=== PATIENT | female | born 1960 | race African-American/Black ===

== ENCOUNTER 2022-01-27 14:58 | Inpatient (IN) | payer MEDICAID, OTHER ==
[~2022-01-27] VITALS: Ht 167.6 cm; Wt 49.8 kg
[2022-01-27 19:00] LABS: Basophils # (auto) 0 10 ^3/uL (0-0.2); Basophils % (auto) 1.4 % (0.0-2.0); Eosinophils # (auto) 0.1 10 ^3/uL (0-0.8); Eosinophils % (auto) 4.3 % (0.0-7.0); Hematocrit 37.5 % (36.0-46.0); Hemoglobin 12.3 g/dL (12.2-16.2); Lymphocytes # (auto) 0.5 10 ^3/uL (0.4-5.4); Lymphocytes % (auto) 20.4 % (10.0-50.0); Mean Corpuscular Hemoglobin 28.4 pg (28.0-32.0); Mean Corpuscular Hgb Conc. 32.9 g/dL (32.0-36.0); Mean Corpuscular Volume 86.4 fL (80.0-100.0); Monocytes # (auto) 0.2 10 ^3/uL (0-1.3); Monocytes % (auto) 9.3 % (0.0-12.0); Neutrophils # (auto) 1.6 10 ^3/uL (1.6-8.6); Neutrophils % (auto) 64.6 % (37.0-80.0); Nucleated Red Blood Cells % 0.3 %; Red Blood Cells 4.34 10^6/uL (4.0-5.20); Red Cell Distribution Width 18.4 % (11.8-14.3); White Blood Cell 2.4 10^3/uL (4.4-10.8)
[2022-01-27 19:25] LABS: Albumin 3.5 g/dL (3.4-5.0); Calcium 8.7 mg/dL (8.5-10.1); Magnesium 2.9 mg/dL (1.6-2.6); Potassium 4.2 mmol/L (3.5-5.1)
[2022-01-27 19:30] LABS: BUN/Creatinine Ratio 12.4; Bilirubin, Total 0.3 mg/dL (0.2-1.0); Total Protein 7.8 g/dL (6.4-8.2)
[2022-01-27] MEDS ORDERED: FUROSEMIDE 40 MG/4 ML VIAL IV ONE (20:15)
[2022-01-27] MEDS ORDERED: MORPHINE SULFATE INJECTION 2 MG/ML SYRG IV PRN (22:00)
[2022-01-27] MEDS ORDERED: ONDANSETRON HCL 4 MG/2 ML VIAL IV PRN (22:00)
[2022-01-27] MEDS: HEPARIN SODIUM (PORCINE) 5000 UNITS/ML 1ML VIAL SC SCH (22:00)
[2022-01-27] MEDS ORDERED: NITROGLYCERIN 0.4 MG SL TAB SL PRN (22:00)
[2022-01-27] MEDS ORDERED: DOCUSATE SOD 100 MG CAP PO PRN (22:00)
[2022-01-27 22:36] LABS: Urine Bacteria MANY /hpf (None Seen); Urine Blood Negative /uL (Negative); Urine Hyaline Cast FEW /lpf (0 - 2); Urine Mucus FEW (None Seen); Urine Specific Gravity 1.015 (1.001-1.035); Urine WBC 58 /hpf (0 - 5)
[2022-01-27 22:41] LABS: Creatinine, Urine 143 mg/dL (30.0-125.0); Sodium Urine 104 mmol/L (40-220)
[2022-01-27] MEDS: FUROSEMIDE 20 MG/2 ML VIAL IV SCH (23:47)
[2022-01-28 00:56] VITALS: BP 144/64
[2022-01-28 05:00] VITALS: BP 131/48
[2022-01-28 05:42] LABS: Basophils # (auto) 0 10 ^3/uL (0-0.2); Basophils % (auto) 1.7 % (0.0-2.0); Eosinophils # (auto) 0.1 10 ^3/uL (0-0.8); Eosinophils % (auto) 4.5 % (0.0-7.0); Hematocrit 36.5 % (36.0-46.0); Lymphocytes # (auto) 0.7 10 ^3/uL (0.4-5.4); Lymphocytes % (auto) 25.4 % (10.0-50.0); Mean Corpuscular Hemoglobin 28.3 pg (28.0-32.0); Mean Corpuscular Hgb Conc. 32.9 g/dL (32.0-36.0); Mean Corpuscular Volume 86.1 fL (80.0-100.0); Monocytes # (auto) 0.3 10 ^3/uL (0-1.3); Monocytes % (auto) 13.1 % (0.0-12.0); Neutrophils # (auto) 1.5 10 ^3/uL (1.6-8.6); Neutrophils % (auto) 55.3 % (37.0-80.0); Nucleated Red Blood Cells % 0.2 %; Red Blood Cells 4.23 10^6/uL (4.0-5.20); Red Cell Distribution Width 17.9 % (11.8-14.3); White Blood Cell 2.6 10^3/uL (4.4-10.8)
[2022-01-28 06:08] LABS: Calcium 8.9 mg/dL (8.5-10.1); Potassium 3.7 mmol/L (3.5-5.1)
[2022-01-28 06:10] LABS: BUN/Creatinine Ratio 13.5
[2022-01-28] MEDS: HEPARIN SODIUM (PORCINE) 5000 UNITS/ML 1ML VIAL SC SCH ×2 (08:57→21:16)
[2022-01-28 09:00] VITALS: BP 126/43
[2022-01-28 13:00] VITALS: BP 136/40
[2022-01-28] MEDS: FUROSEMIDE 20 MG/2 ML VIAL IV SCH (18:13)
[2022-01-28 22:00] VITALS: BP 97/41
[2022-01-29] MEDS ORDERED: DIPH50CA31 OR (02:37)
[2022-01-29] MEDS ORDERED: LEVO150T10 PO ×2 (02:37→15:58)
[2022-01-29] MEDS ORDERED: FERR-20 PO (02:37)
[2022-01-29] MEDS ORDERED: FURO20TA3 PO (02:37)
[2022-01-29] MEDS ORDERED: OLOP0.2S15 OP ×2 (02:37→09:52)
[2022-01-29] MEDS ORDERED: POTA10TA51 PO (02:37)
[2022-01-29] MEDS ORDERED: HYDR2.5L TOP ×2 (02:37→09:52)
[2022-01-29 05:00] VITALS: BP 107/44
[2022-01-29] MEDS: FUROSEMIDE 20 MG/2 ML VIAL IV SCH (05:52)
[2022-01-29 07:15] LABS: Hemoglobin 12.7 g/dL (12.2-16.2); Mean Corpuscular Hemoglobin 28.6 pg (28.0-32.0); Mean Corpuscular Hgb Conc. 33.4 g/dL (32.0-36.0); Mean Corpuscular Volume 85.7 fL (80.0-100.0); Red Blood Cells 4.43 10^6/uL (4.0-5.20); Red Cell Distribution Width 18.1 % (11.8-14.3); White Blood Cell 3.7 10^3/uL (4.4-10.8)
[2022-01-29 07:39] LABS: Potassium 4.1 mmol/L (3.5-5.1)
[2022-01-29 08:03] LABS: BUN/Creatinine Ratio 21.2
[2022-01-29 08:10] LABS: Band Neutrophils % (manual) 0; Basophils % (manual) 0 (0.0-2.0); Blast Cells 0; Metamyelocytes % 0; Myelocytes % 0; Promyelocytes % 0; Reactive Lymphocytes 0
[2022-01-29 08:27] VITALS: BP 134/49
[2022-01-29 08:44] LABS: Eosinophils % (manual) 7 (0-7); Lymphocytes % (manual) 21 (10.0-50.0); Monocytes % (manual) 7 (0-12)
[2022-01-29] MEDS ORDERED: ERGOCALCIFEROL 50,000 UNIT(1.25MG) CAP PO SCH (09:00)
[2022-01-29] MEDS: HEPARIN SODIUM (PORCINE) 5000 UNITS/ML 1ML VIAL SC SCH (10:00)
[2022-01-29 12:35] VITALS: BP 115/36
[2022-01-29] MEDS ORDERED: ERGO1CAP23 PO (15:58)
[2022-01-29] MEDS ORDERED: FURO1TAB33 PO (15:58)
[2022-01-29 16:00] VITALS: BP 112/54
[2022-01-29] MEDS ORDERED: SERT50TA PO (17:45)
[2022-01-29 18:01] VITALS: BP 112/54
== END 2022-01-29 20:58 | disposition home health service (06) | DRG 194 ==
LOC: ER 14:58 → TELE 21:52 → TELE-CENTR 23:46
PROVIDERS: ADMIT Hospitalist; ATTEND Hospitalist
DX: I13.0 Hypertensive heart and chronic kidney disease with heart failure and stage 1 through stage 4 chronic kidney disease, or unspecified chronic kidney disease (principal); N17.0 Acute kidney failure with tubular necrosis; I27.20 Pulmonary hypertension, unspecified; D63.1 Anemia in chronic kidney disease; F32.1 Major depressive disorder, single episode, moderate; I50.33 Acute on chronic diastolic (congestive) heart failure; E11.22 Type 2 diabetes mellitus with diabetic chronic kidney disease; E03.9 Hypothyroidism, unspecified; E55.9 Vitamin D deficiency, unspecified; F32.9 Major depressive disorder, single episode, unspecified; I08.0 Rheumatic disorders of both mitral and aortic valves; Z20.822 Contact with and (suspected) exposure to COVID-19; N18.30 Chronic kidney disease, stage 3 unspecified; I25.10 Atherosclerotic heart disease of native coronary artery without angina pectoris; J44.9 Chronic obstructive pulmonary disease, unspecified; Z82.0 Family history of epilepsy and other diseases of the nervous system; Z82.49 Family history of ischemic heart disease and other diseases of the circulatory system; Z83.3 Family history of diabetes mellitus; Z87.891 Personal history of nicotine dependence; Z91.14 Patient's other noncompliance with medication regimen; Z88.0 Allergy status to penicillin
CPT/HCPCS: 36415; 71046; 76775; 80048; 80053; 81001; 82306; 82570; 83735; 83880; 83970; 84100; 84300; 84484; 85007; 85025; 85027; 93005; 93306; 96374; G0378